=== PATIENT | male | born 1945 | race Caucasian/White ===

== ENCOUNTER 2021-07-09 07:58 | Inpatient (IN) | payer OTHER ==
[2021-07-09] VITALS (9 sets, daily range): BP systolic 123–191; BP diastolic 42–87
[~2021-07-09] VITALS: Ht 182.8 cm; Wt 115.3 kg
[2021-07-09 08:35] LABS: BASO % 0.1 % (0.0-1.0); EOS % 0.2 % (1.0-4.0); HEMATOCRIT 38.9 % (42.0-52.0); LYMPH # 0.4 10*3/uL (1.3-4.4); LYMPH % 1.8 % (27.0-41.0); MEAN CELL VOLUME 89.8 fl (80.0-94.0); MEAN CORPUSCULAR HGB 27.9 pg (27.0-31.0); MEAN CORPUSCULAR HGB CONC 31.1 g/dl (33.0-37.0); MEAN PLATELET VOLUME 12.5 fl (9.6-12.3); MONO # 1.5 10*3/uL (0.1-1.0); MONO % 7.1 % (3.0-9.0); NEUT # 18.6 10*3/uL (2.3-7.9); NEUT % 89.9 % (47.0-73.0); PLATELET COUNT AUTOMATED 189 10*3/uL (130-400); RED BLOOD COUNT 4.33 10*6/uL (4.50-5.90); RED CELL DISTRI WIDTH 16.9 % (0-14.5); WHITE BLOOD COUNT 20.7 10*3/uL (4.8-10.8)
[2021-07-09 08:46] LABS: ACT PARTIAL THROMBO TIME 32.5 SECONDS (20.0-32.1); INTERNATIONAL NORM RATIO 1.2 (2.0-3.5)
[2021-07-09 08:50] LABS: ALBUMIN 2.5 gm/dl (3.1-4.5); ALKALINE PHOSPHATASE 80 U/L (45-117); BUN 22 mg/dl (7-24); CHLORIDE 106 mmol/L (98-107); CREATININE 1.02 mg/dL (0.70-1.30); POTASSIUM 4.1 mmol/L (3.5-5.1); SGOT/AST 15 IU/L (3-35); SGPT/ALT 16 U/L (12-78); SODIUM 140 mmol/L (136-145)
[2021-07-09 09:22] LABS: ABG BASE EXCESS 1.6 mmol/L (-2.0-2.0); ARTERIAL BLOOD GAS PH 7.439 (7.35-7.45); ARTERIAL BLOOD GAS PO2 81.2 (80-90)
[2021-07-09 09:44] LABS: BILIRUBIN Negative (Negative); BLOOD Trace-Intact (Negative); CLARITY Cloudy (Clear); COLOR Yellow (Yellow); GLUCOSE Negative (Negative); KETONE 2+ (Negative); LEUKO ESTERASE 2+ (Negative); NITRITE Negative (Negative); PH 5.5 (4.5-8.0); SPECIFIC GRAVITY 1.025 (1.001-1.030)
[2021-07-09 09:58] LABS: BACTERIA 2+; MUCOUS 2+; WBC 21-30 wbc/hpf (0-5)
[2021-07-09] MEDS ORDERED: COREG3.125 MG PO (11:10)
[2021-07-09] MEDS ORDERED: COZAAR25 M1 PO (11:11)
[2021-07-09] MEDS ORDERED: NOVOLOG FL100 UNIT/2 SC (11:11)
[2021-07-09] MEDS ORDERED: LASIX40 MG PO (11:11)
[2021-07-09] MEDS ORDERED: KLOR-CON 1010 ME1 PO (11:12)
[2021-07-09] MEDS ORDERED: GLIPIZIDE5 MG PO (11:12)
[2021-07-09] MEDS ORDERED: PRAVASTATIN SOD40 MG PO (11:12)
[2021-07-09] MEDS ORDERED: METFORMIN HYDR500 MG PO (11:13)
[2021-07-09] MEDS ORDERED: FLOMAX0.4 MG PO (11:13)
[2021-07-09] MEDS ORDERED: ASPIRIN ADULT L81 M2 PO (14:00)
[2021-07-09] MEDS ORDERED: PROTONIX40 MG PO (14:01)
[2021-07-09] MEDS ORDERED: LIPITOR10 MG PO (14:04)
[2021-07-09] MEDS ORDERED: HYDROCODON-ACE1 EACH PO (14:14)
[2021-07-09] MEDS ORDERED: CYCLOPENTOLATE H2 ML OPH (14:16)
[2021-07-09] MEDS ORDERED: TYLENOL325 M1 PO (14:16)
[2021-07-09] MEDS ORDERED: BENZONATATE100 M1 PO (14:17)
[2021-07-09] MEDS ORDERED: MECLIZINE HCL25 M2 PO (14:19)
[2021-07-09] MEDS ORDERED: POTASSIUM CHLO20 ME3 PO (14:19)
[2021-07-10] VITALS: BP 132/42
[2021-07-10 04:44] VITALS: BP 130/55
[2021-07-10 06:05] LABS: BASO % 0.1 % (0.0-1.0); EOS # 0.2 10*3/uL (0.0-0.4); EOS % 1.3 % (1.0-4.0); HEMATOCRIT 36.9 % (42.0-52.0); LYMPH # 0.6 10*3/uL (1.3-4.4); LYMPH % 4.5 % (27.0-41.0); MEAN CELL VOLUME 91.6 fl (80.0-94.0); MEAN CORPUSCULAR HGB 28.3 pg (27.0-31.0); MEAN CORPUSCULAR HGB CONC 30.9 g/dl (33.0-37.0); MEAN PLATELET VOLUME 12.5 fl (9.6-12.3); MONO # 1.4 10*3/uL (0.1-1.0); MONO % 9.8 % (3.0-9.0); NEUT # 11.8 10*3/uL (2.3-7.9); NEUT % 83.3 % (47.0-73.0); PLATELET COUNT AUTOMATED 167 10*3/uL (130-400); RED BLOOD COUNT 4.03 10*6/uL (4.50-5.90); RED CELL DISTRI WIDTH 17.1 % (0-14.5); WHITE BLOOD COUNT 14.2 10*3/uL (4.8-10.8)
[2021-07-10 06:18] LABS: CHLORIDE 107 mmol/L (98-107); POTASSIUM 3.5 mmol/L (3.5-5.1); SODIUM 140 mmol/L (136-145)
[2021-07-10 06:29] LABS: ALBUMIN 2.2 gm/dl (3.1-4.5); ALKALINE PHOSPHATASE 79 U/L (45-117); BUN 25 mg/dl (7-24); CHOLESTEROL 100 mg/dL (<200); CREATININE 1.28 mg/dL (0.70-1.30); FREE T4 1.38 ng/dl (0.76-1.46); LDL CHOLESTEROL 41 mg/dL (9-159); SGOT/AST 21 IU/L (3-35); SGPT/ALT 15 U/L (12-78); THYROID STIM HORMONE (HS) 0.548 uIU/ml (0.358-4.75); TOTAL PROTEIN 5.9 gm/dL (6.4-8.2); TRIGLYCERIDES 73 mg/dl (<150)
[2021-07-10 08:00] VITALS: BP 139/59
[2021-07-10 12:00] VITALS: BP 131/67; BP 143/61
[2021-07-10 16:00] VITALS: BP 126/50
[2021-07-10 20:00] VITALS: BP 149/52
[2021-07-11] VITALS: BP 145/63
[2021-07-11 07:01] LABS: BASO % 0.1 % (0.0-1.0); EOS # 0.3 10*3/uL (0.0-0.4); EOS % 2.4 % (1.0-4.0); HEMATOCRIT 35.8 % (42.0-52.0); LYMPH # 0.9 10*3/uL (1.3-4.4); LYMPH % 6.7 % (27.0-41.0); MEAN CELL VOLUME 91.8 fl (80.0-94.0); MEAN CORPUSCULAR HGB 27.9 pg (27.0-31.0); MEAN CORPUSCULAR HGB CONC 30.4 g/dl (33.0-37.0); MEAN PLATELET VOLUME 13.4 fl (9.6-12.3); MONO # 1.2 10*3/uL (0.1-1.0); MONO % 9.4 % (3.0-9.0); NEUT # 10.2 10*3/uL (2.3-7.9); NEUT % 80.9 % (47.0-73.0); PLATELET COUNT AUTOMATED 152 10*3/uL (130-400); WHITE BLOOD COUNT 12.6 10*3/uL (4.8-10.8)
[2021-07-11 07:10] LABS: BUN 28 mg/dl (7-24); CHLORIDE 111 mmol/L (98-107); CREATININE 1.26 mg/dL (0.70-1.30); POTASSIUM 4.3 mmol/L (3.5-5.1); SODIUM 138 mmol/L (136-145)
[2021-07-11 08:00] VITALS: BP 136/59
[2021-07-11 12:00] VITALS: BP 138/65
[2021-07-11 16:00] VITALS: BP 148/59
[2021-07-11 20:00] VITALS: BP 144/51
[2021-07-12] VITALS: BP 144/58
[2021-07-12 08:00] VITALS: BP 142/75
[2021-07-12 12:00] VITALS: BP 138/65
[2021-07-12 16:00] VITALS: BP 136/52
[2021-07-12 20:00] VITALS: BP 114/52
[2021-07-13] VITALS: BP 143/61
[2021-07-13 06:32] LABS: BASO % 0.2 % (0.0-1.0); EOS # 0.3 10*3/uL (0.0-0.4); EOS % 3.1 % (1.0-4.0); HEMATOCRIT 34.2 % (42.0-52.0); LYMPH # 0.8 10*3/uL (1.3-4.4); LYMPH % 9.1 % (27.0-41.0); MEAN CORPUSCULAR HGB 27.9 pg (27.0-31.0); MEAN CORPUSCULAR HGB CONC 30.7 g/dl (33.0-37.0); MEAN PLATELET VOLUME 12.8 fl (9.6-12.3); NEUT # 7.1 10*3/uL (2.3-7.9); NEUT % 76.2 % (47.0-73.0); PLATELET COUNT AUTOMATED 187 10*3/uL (130-400); RED BLOOD COUNT 3.76 10*6/uL (4.50-5.90); RED CELL DISTRI WIDTH 16.6 % (0-14.5); WHITE BLOOD COUNT 9.3 10*3/uL (4.8-10.8)
[2021-07-13 06:33] LABS: ALBUMIN 2.1 gm/dl (3.1-4.5); ALKALINE PHOSPHATASE 80 U/L (45-117); CHLORIDE 110 mmol/L (98-107); CREATININE 0.98 mg/dL (0.70-1.30); POTASSIUM 3.7 mmol/L (3.5-5.1); SGOT/AST 14 IU/L (3-35); SGPT/ALT 16 U/L (12-78); SODIUM 141 mmol/L (136-145)
[2021-07-13 06:35] LABS: BUN 18 mg/dl (7-24)
[2021-07-13 08:00] VITALS: BP 154/82
[2021-07-13] MEDS ORDERED: ATORVASTATIN CA40 M1 PO (10:45)
[2021-07-13] MEDS ORDERED: LISINOPRIL2.5 MG PO (10:45)
[2021-07-13] MEDS ORDERED: REMEDY CALAZIME4 GM T (10:45)
[2021-07-13] MEDS ORDERED: FUROSEMIDE40 MG PO (10:45)
[2021-07-13] MEDS ORDERED: VITAMIN D350 MC2 PO (10:45)
[2021-07-13] MEDS ORDERED: ZYVOX600 MG PO (10:45)
[2021-07-13] MEDS ORDERED: LEVOFLOXACIN750 M2 PO (10:46)
[2021-07-13] MEDS ORDERED: HYDROCODON-ACE1 EACH PO (10:55)
[2021-07-13 15:39] VITALS: BP 140/52
== END 2021-07-13 15:32 | DRG 871 ==
LOC: ED 07:58 → 4E 10:46 → EDHOLD 10:46 → 4E 12:24
PROVIDERS: Emergency Medicine; Internal Medicine; Registered Nurse; Student in an Organized Health Care Education/Training Program; ADMIT Emergency Medicine; ATTEND Emergency Medicine
PROC: 05HY33Z Insertion of Infusion Device into Upper Vein, Percutaneous Approach (ICD-10-PCS; principal; 2021-07-13)
DX: A41.9 Sepsis, unspecified organism (principal); G93.41 Metabolic encephalopathy; E43 Unspecified severe protein-calorie malnutrition; U07.1 COVID-19; J18.9 Pneumonia, unspecified organism; I21.A1 Myocardial infarction type 2; I50.32 Chronic diastolic (congestive) heart failure; L03.115 Cellulitis of right lower limb; N39.0 Urinary tract infection, site not specified; Z20.822 Contact with and (suspected) exposure to COVID-19; E11.9 Type 2 diabetes mellitus without complications; E78.5 Hyperlipidemia, unspecified; N40.0 Benign prostatic hyperplasia without lower urinary tract symptoms; I45.10 Unspecified right bundle-branch block; Z88.5 Allergy status to narcotic agent; Z79.899 Other long term (current) drug therapy; D64.9 Anemia, unspecified; I11.0 Hypertensive heart disease with heart failure; R65.20 Severe sepsis without septic shock; Z68.34 Body mass index [BMI] 34.0-34.9, adult

== ENCOUNTER → 2021-08-02 | Outpatient (CLI) | payer OTHER ==
[~2021-08-02] MED LIST: ASPIRIN ADULT L81 M2 PO; ATORVASTATIN CA40 M1 PO; BENZONATATE100 M1 PO; COREG3.125 MG PO; COZAAR25 M1 PO; CYCLOPENTOLATE H2 ML OPH; FLOMAX0.4 MG PO; FUROSEMIDE40 MG PO; GLIPIZIDE5 MG PO; HYDROCODON-ACE1 EACH PO; KLOR-CON 1010 ME1 PO; LASIX40 MG PO; LEVOFLOXACIN750 M2 PO; LIPITOR10 MG PO; LISINOPRIL2.5 MG PO; MECLIZINE HCL25 M2 PO; METFORMIN HYDR500 MG PO; NOVOLOG FL100 UNIT/2 SC; POTASSIUM CHLO20 ME3 PO; PRAVASTATIN SOD40 MG PO; PROTONIX40 MG PO; REMEDY CALAZIME4 GM T; TYLENOL325 M1 PO; VITAMIN D350 MC2 PO; ZYVOX600 MG PO
== END | disposition home or self-care (01) ==
LOC: CT 11:00
PROVIDERS: ATTEND Urology
DX: N26.1 Atrophy of kidney (terminal) (principal); K57.30 Diverticulosis of large intestine without perforation or abscess without bleeding; I25.10 Atherosclerotic heart disease of native coronary artery without angina pectoris